=== PATIENT | female | born 1995 | race Caucasian/White ===

== ENCOUNTER 2017-11-06 22:06 | Emergency (ER) | payer BC, SELFPAY ==
[2017-11-06 22:09] VITALS: BP 115/60; PULSE 99; RESP 20; TEMP 36.5; O2SAT 98; BMI 27.3
[2017-11-06] MEDS: DiphenhydrAMINE 25 MG Capsule PO (23:39)
--- NOTE | 2017-11-07 00:37 | ED.VISSUMM ---
- ER Visit Summary Date of Service: 11/07/17 Chief Complaint: Generalized itching History of Present Illness: The patient is a 22 F who was seen at the [facility] and prescribed Omnicef for severe otitis media. She also complains of scratchy throat, dry mouth, cough and nasal congestion. She denies fever or chills. She denies any visual change, photophobia or eye pain. She denies neck pain or neck stiffness. Her cough is nonproductive. She denies nausea or vomiting. She denies rash. She denies orthostatic symptoms. Please read written note for complete detail Physical Examination: Patient's vitals are normal. Head is atraumatic normocephalic. Pupils are equal round reactive. Extraocular muscles are intact. TMs are pearly white with landmarks noted in the right and evidence of serous otitis on the left.. Nares patent with minimal clear drainage. Posterior pharynx without erythema or exudate. Uvula is midline. There is no dysphonia or dysphasia. Trachea is midline. There is no stridor with auscultation of the neck. Is no anterior cervical lymphadenopathy. Heart is regular without murmur, gallop or rub. S1 and S2 are normal. Lungs are clear to auscultation with good movement of air bilaterally. Dermatologic exam is normal with no evidence of rash or lesions. Test Results: None Emergency Department Course and Treatment: Patient was given Benadryl. She was reassessed at 029. Her itching has resolved. Treatment Plan: Patient was instructed to discontinue the antibiotic she was prescribed. She was informed her constellation of symptoms is consistent with a viral upper respiratory infection and the reason she has ear discomfort is because there is fluid behind the left eardrum. Disposition: Discharged to home Impression: 1. Pruritus secondary to reaction antibiotic 2. Serous otitis media left ear 3. Acute viral upper respiratory infection This note was generated with [employer] dictation software. It may contain incorrect words, spelling, and punctuation that were not noted in review of the chart prior to signing ED Disposition - Plan for ED Patient: Disposition: Home or Assisted Living Chief Complaint: Allergic Reaction Instructions: ED Allergic Reaction General Other, ED Otitis Media Serous Adult, ED URI Viral Referrals: Care Physician,No Primary [Primary Care Provider] - Cas King MD [STAFF PHYSICIAN] - 1 Week if not improving Additional Instructions: Patient was referred to the Dr. King since her prior physician was a family practitioner at the [facility] and she requested to have a doctor who worked at the [facility]. Discontinue Omnicef
--- NOTE | 2017-11-07 00:46 | ED.DCSUM_ITS ---
- ER Visit Summary Date of Service: 11/07/17 Chief Complaint: Generalized itching History of Present Illness: The patient is a 22 F who was seen at the [facility] and prescribed Omnicef for severe otitis media. She also complains of scratchy throat, dry mouth, cough and nasal congestion. She denies fever or chills. She denies any visual change, photophobia or eye pain. She denies neck pain or neck stiffness. Her cough is nonproductive. She denies nausea or vomiting. She denies rash. She denies orthostatic symptoms. Please read written note for complete detail Physical Examination: Patient's vitals are normal. Head is atraumatic normocephalic. Pupils are equal round reactive. Extraocular muscles are intact. TMs are pearly white with landmarks noted in the right and evidence of serous otitis on the left.. Nares patent with minimal clear drainage. Posterior pharynx without erythema or exudate. Uvula is midline. There is no dysphonia or dysphasia. Trachea is midline. There is no stridor with auscultation of the neck. Is no anterior cervical lymphadenopathy. Heart is regular without murmur, gallop or rub. S1 and S2 are normal. Lungs are clear to auscultation with good movement of air bilaterally. Dermatologic exam is normal with no evidence of rash or lesions. Test Results: None Emergency Department Course and Treatment: Patient was given Benadryl. She was reassessed at 029. Her itching has resolved. Treatment Plan: Patient was instructed to discontinue the antibiotic she was prescribed. She was informed her constellation of symptoms is consistent with a viral upper respiratory infection and the reason she has ear discomfort is because there is fluid behind the left eardrum. Disposition: Discharged to home Impression: 1. Pruritus secondary to reaction antibiotic 2. Serous otitis media left ear 3. Acute viral upper respiratory infection This note was generated with [employer] dictation software. It may contain incorrect words, spelling, and punctuation that were not noted in review of the chart prior to signing ED Disposition - Plan for ED Patient: Disposition: Home or Assisted Living Chief Complaint: Allergic Reaction Instructions: ED Allergic Reaction General Other, ED Otitis Media Serous Adult , ED URI Viral Referrals: Care Physician,No Primary [Primary Care Provider] - Cas King MD [STAFF PHYSICIAN] - 1 Week if not improving Additional Instructions: Patient was referred to the Dr. King since her prior physician was a family practitioner at the [facility] and she requested to have a doctor who worked at the [facility]. Discontinue Omnicef
[2017-11-07 00:55] VITALS: PULSE 76; RESP 18; O2SAT 99
== END 2017-11-07 00:56 | disposition home or self-care (01) ==
PROVIDERS: Emergency Provider Emergency Medicine
DX: L29.9 Pruritus, unspecified (principal); T36.1X5A Adverse effect of cephalosporins and other beta-lactam antibiotics, initial encounter; H65.92 Unspecified nonsuppurative otitis media, left ear; J06.9 Acute upper respiratory infection, unspecified; Z72.0 Tobacco use
CPT/HCPCS: 99282

== ENCOUNTER 2018-06-27 19:34 | Emergency (ER) | payer BC, SELFPAY ==
[2018-06-27 19:34] VITALS: BP 123/74; PULSE 99; RESP 18; TEMP 36.8; O2SAT 97; BMI 27.6
--- NOTE | 2018-06-27 20:04 | DCINST.ED_ITS ---
ED Disposition - Plan for ED Patient: Chief Complaint: Ear Problem Instructions: ED Otitis Media Serous Adult Prescriptions: Guaifenesin/Pseudoephedrne HCl [Mucinex D ER 600-60 mg Tablet] 1 each PO BID #14 tab.er.[id number] Referrals: Janes Miles, BUSINESS SUPPORT MANAGER-C [NON-STAFF] -
--- NOTE | 2018-06-27 20:08 | ED.DCSUM_ITS ---
- ER Visit Summary Date of Service: 06/27/18 Chief Complaint: Right ear pain and decreased hearing History of Present Illness: The patient is a 23 F presents with right ear pain and decreased hearing. She states this has been ongoing for the past 2 weeks. She states she did use a Q-tip at one point during this time. She has not had a fever. Denies recent swimming or airplane trips. She has not tried medication at home. Denies other complaints. Physical Examination: Vitals are stable. Patient is afebrile. Alert no acute distress. HEENT exam fluid behind right TM, left TM normal Neck is supple. Lungs are clear and equal bilaterally. Heart is regular rate and rhythm. Extremities are unremarkable. Skin is warm and dry. No focal neurologic deficit. Remainder of exam is unremarkable. Emergency Department Course and Treatment: Patient is given a prescription for Mucinex D. She is advised to follow-up with her primary care physician. Advised return to ED if worsening complaints. Disposition: Discharge home Impression: Right serous otitis media This note was generated with [employer] dictation software. It may contain incorrect words, spelling, and punctuation that were not noted in review of the chart prior to signing ED Disposition - Plan for ED Patient: Chief Complaint: Ear Problem Instructions: ED Otitis Media Serous Adult Prescriptions: Guaifenesin/Pseudoephedrne HCl [Mucinex D ER 600-60 mg Tablet] 1 each PO BID #14 tab.er.12h Referrals: Janes Miles, SARAH-C [NON-STAFF] -
== END 2018-06-27 20:33 | disposition home or self-care (01) ==
LOC: ED 20:24
PROVIDERS: Emergency Provider Emergency Medicine
DX: H65.91 Unspecified nonsuppurative otitis media, right ear (principal); Z72.0 Tobacco use
CPT/HCPCS: 99282

== ENCOUNTER 2021-09-12 08:25 | Emergency (ER) | payer BC, SELFPAY ==
[2021-09-12 08:26] VITALS: BP 121/71; PULSE 100; RESP 17; TEMP 35.9; O2SAT 97; BMI 31.3
--- NOTE | 2021-09-12 08:50 | US_ITS ---
STUDY: FIRST TRIMESTER OBSTETRICAL ULTRASOUND REASON FOR EXAM: Female, 26 years old w/ pelvic pain LMP: 08/11/2021. TECHNIQUE: Transvaginal TECHNICAL QUALITY: Adequate. PRIOR ULTRASOUND: None. FINDINGS: There is visualization of a single gestational sac in a normal intrauterine position. The mean sac diameter (MSD) measures 1.9 cm, indicating an estimated gestational age (EGA) of 6 weeks, 6 days. The gestational sac shape is within normal limits. There is a visualized yolk sac. The yolk sac measures 3.3 mm. The placenta is non-visualized. There is visualization of a live embryo. The crown-rump length (CRL) measures 7.6 mm, indicating an estimated gestational age (EGA) of 6 weeks, 5 days. There is demonstrated cardiac activity with a heart rate of 117 bpm. The estimated gestation age (EGA) by LMP is 6 weeks, 4 days. The estimated date of delivery (PRISCA) by LMP is 05/04/2022. The estimated gestation age (EGA) by US is 6 weeks, 5 days. The estimated date of delivery (PRISCA) by US is 05/03/2022. The uterus measures 9.1cmx 7.1 cm x 5.2 cm. There is no demonstrated uterine fibroid. The cervix is closed. The right ovary measures 2.7 cm x 1.5 cm x 0.9 cm. There is no right ovarian cyst. There is no visualized right adnexal mass or complex lesion. The left ovary measures 3.5 cm x 2.4 cm x 2.3 cm. There is a 2.5 cm x 1.8 cm x 1.5 cm corpus luteum cyst. There is no visualized left adnexal mass or complex lesion. There is no fluid in the cul de sac. US/Transvaginal w/Preg US IMPRESSION: Single live intrauterine gestation with a mean gestational age of 6 weeks 5 days. Corpus luteum cyst is seen in the left ovary. Electronically Signed: Jeff Spence MD at 12:19 EDT ,
--- NOTE | 2021-09-12 08:52 | ED.VIS.FEGU ---
HPI HPI - Female History of Present Illness Chief Complaint: Abd Pain Detail of Chief Complaint: Pelvic pain Informant: patient Pain Pain: Positive for Pelvic Pain Onset: Days Context: Gradual Onset Timing: Continuous Quality: Positive for Cramping Location: Suprapubic Current Severity: Mild Maximum Severity: Mild Bleeding Issue: Negative for Vaginal bleeding, Passing clots and Passing tissue Maximum Severity: Spotting, Mild, Similar to period and Heavy Associated Symptoms Associated Symptoms: Negative for Dysuria, Frequency, Urgency and Hematuria Test: Positive Sexually: Positive for Active P: 1 Ab: 0 Narrative Narrative: 26-year-old female G2, P1 Ab0. Think she is about 6 weeks and 5 days with her last menstrual period being around July 28. She has had no care as of yet. States that she has had pelvic pain for the last 5 to 6 days starting around Thursday. Increased yesterday. She describes it as sharp and cramping. Denies any vaginal bleeding nor any vaginal discharge. No fever. No specific dysuria. She is Ab0. She denies any diarrhea or constipation. Prior similar symptoms: No Recent Illness/Hospitalization: No PFSH PFSH Medical History no medical history no medical history Home Medications prenat.vits,armando,yat-sypp-uyyio 1 tab PO DAILY 09/09/21 [History Last Taken Unknown] sertraline 50 mg tablet 50 mg PO DAILY 09/09/21 [History Last Taken Unknown] Allergy/AdvReac Type Severity Reaction Status Date / Time amoxicillin [Amoxicillin] Allergy Hives Verified 09/12/21 08:26 cefdinir [From Omnicef] Allergy Shortness Verified 09/12/21 08:26 of breath Penicillins Allergy Hives Verified 09/12/21 08:26 Family History Father Myocardial infarction stent placement Brother Asthma Surgical History S/P tonsillectomy S/P wisdom tooth extraction Social History adopted: No household members: significant other and children number of children: 1 current occupational status: employed current occupation: [employer] pets and animals: Yes (avoid litter box) pets and animals: cat(s) Smoking Status: Current some day smoker tobacco type: cigarettes quit status: considering quitting alcohol intake: never substance use type: does not use caffeine: Yes (soda X 1 daily) do you feel safe at home: Yes additional social history: Chelsie Mathur ROS ROS ED ROS Narrative Nausea and vomiting. Review of Systems ROS Unobtainable: Denies due to encephalopathy Constitutional Constitutional ED: Denies fever(s) Eyes Eyes: Denies change in vision ENT ENT ED: Denies ear pain Cardiovascular Cardiovascular: Denies chest pain Respiratory/Chest Respiratory/Chest: Denies dyspnea Gastrointestinal Gastrointestinal: Reports abdominal pain, nausea and vomiting; Denies constipation or diarrhea Genitourinary Genitourinary ED: Denies dysuria Musculoskeletal Musculoskeletal: Denies myalgias Integumentary Denies rash Neurologic Neurologic: Denies headache(s) Psychiatric Psychiatric: Denies depression Endocrine Endocrinology: Denies polyuria Hematologic/Lymphatic Hematologic/Lymphatic: Denies easy bruising Allergic/Immunologic Allergic/Immunologic ED: Denies urticaria EXAM Physical Exam Narrative Exam Narrative: 26-year-old female no acute distress. Vital signs stable afebrile. H EENT exam unremarkable. Lungs clear to auscultation. Heart regular rhythm. Abdomen soft nondistended normal bowel sounds no peritoneal signs. Tender suprapubically. Upper quadrants are unremarkable. Right lower quadrant is unremarkable. No hernia or mass. No distention. Moving all 4 extremities. No edema. Neurologically awake and alert. Const Vital Signs: 09/12/21 08:26 Temperature 96.7 F L Temperature Source Temporal Pulse Rate 100 Respiratory Rate 17 Blood Pressure 121/71 H Blood Pressure Mean 87 Pulse Ox 97 Oxygen Delivery Method Room Air Positive well nourished and well developed; Negative for cachectic, contractures or unkempt General Appearance ED: well developed and NAD; Negative for unkempt, cachectic, contractures or pallor Nutritional Appearance: Negative for cachectic HEENT Reports moist mucous membranes Negative for trauma or tenderness Eyes PERRL and EOMs intact bilaterally General Eye ED: Negative for pale conjunctiva or scleral icterus Neck no lymphadenopathy, supple and no JVD Thyroid: Negative for tender Chest Wall inspection of chest normal and palpation of chest normal Resp normal respiratory effort and clear to auscultation bilaterally Effort and Inspection: Negative for pain with movement Auscultation: Negative for rales or rhonchi Cardio regular rate, regular rhythm, S1 normal heart sound, no murmurs and no JVD Rate: Negative for tachycardic Rhythm: Negative for abnormal rhythm GI normal to inspection, nondistended, normoactive bowel sounds, soft to palpation, non-distended and no masses; Negative for non-tender Auscultation: normoactive bowel sounds; Negative for hypoactive bowel sounds Palpation: tender; Negative for guarding or rigid no CVA tenderness Extremity normal to inspection and full ROM General Extremety ED: Negative for edema or tenderness General Extremity: Negative for edema Neuro oriented x3 and CN's II-XII intact bilaterally Sensorium / Orientation: alert, oriented to person, oriented to place and oriented to time Motor Exam: strength 5/5 throughout Psych mental status grossly normal Appearance: Negative for unkempt Mood & Affect: Negative for depressed or tearful Skin no rashes or lesions noted and no wounds General Skin Exam: Negative for jaundice or pallor MDM MDM MDM Narrative Medical decision making narrative: 26-year-old female G2, P1 Ab0 approximately 6+ weeks . Complaining of pelvic pain. No bleeding. Her blood type is O+. Pelvic ultrasound, urinalysis and quant will be obtained. Repeat exam patient doing well at 12:37 PM. We went over all of her test results. She will be discharged home. Tylenol for pain. Follow-up with her DIRECT SUPPORT SPECIALIST. Lab Data Attestation: I reviewed the patient's lab results. Lab results narrative: Quantitative hCG is 34,803. Urinalysis negative. No whites or reds nor bacteria nor nitrates. Ultrasound showed a single live IUP at 6 weeks and 5 days with a due date of around 05/04/2022. Labs: Laboratory Results - last 24 hr 09/12/21 09/12/21 09:43 10:25 HCG, Quant 02900 H Urine Color Yellow Urine Clarity Clear Urine pH 6.5 Ur Specific [place] 1.010 Urine Protein Negative Urine Glucose (UA) Normal Urine Ketones Negative Urine Occult Blood Negative Urine Nitrite Negative Urine Bilirubin Negative Urine Urobilinogen Normal Ur Leukocyte Esterase 25 H Urine RBC 0 SEEN Urine WBC 0-5 SEEN Ur Squamous Epith Cells 0-5 SEEN Urine Bacteria 0 SEEN Urine Mucus 0 SEEN Radiography Diagnostic Testing: Clinical Impression(s) from Imaging Studies Obstetrics Ultrasound 09/12/21 08:50 IMPRESSION: Single live intrauterine gestation with a mean gestational age of 6 weeks 5 days. Corpus luteum cyst is seen in the left ovary. Electronically Signed: Jeff Spence MD at 12:19 EDT , Discharge Plan Triage Chief Complaint: Abd Pain ED Provider: Ezio Crisostomo Dx/Rx/DC Orders Clinical Impression: Pelvic pain, First trimester Instructions: Your First Trimester ... Prescriptions: No Action sertraline [Zoloft] 50 mg tablet 50 mg PO DAILY RF: 0 prenat.vits,armando,wnh-hhog-rstip Tablet 1 tab PO DAILY RF: 0 Primary Care Provider: Janes Miles NP Referrals: Willow Concepcion DO [STAFF PHYSICIAN] - As soon as possible Janes Miles NP, INBOUND CUSTOMER SERVICE REPRESENTATIVE-C [Primary Care Provider] - Activity Restrictions/Additional Instructions: Follow-up with your DIRECT SUPPORT SPECIALIST. Tylenol for pain. Your ultrasound and urinalysis were normal. Disposition Disposition: Home, Self Care
[2021-09-12 10:31] LABS: Bacteria 0 SEEN /hpf (None Seen); Mucous, Urine 0 SEEN /hpf (<or=2+); Red Blood Cells-Urine 0 SEEN /hpf (0-5)
[2021-09-12 10:33] LABS: Color, Urine Yellow (Yellow); Glucose, Dipstick Normal (Normal); Ketone-Dipstick Negative (Negative); Leukocyte Esterase-Dipstick 25 /ul (Negative); Nitrite-Dipstick Negative (Negative); Occult Blood-Urine Negative /ul (Negative); Protein-Dipstick Negative (Negative); Urine Bilirubin Dipstick Negative (Negative); Urine Clarity Clear (Clear); Urine Urobilinogen Normal (Normal); Urine pH 6.5 (5.0 - 8.0)
[2021-09-12 10:38] LABS: hCG Titer Quant., Serum 34803 mIU/mL (1-3)
[2021-09-12 10:39] LABS: Squamous Epithelial Cells - UA 0-5 SEEN /hpf (5-10); White Blood Cells 0-5 SEEN /hpf (0-5)
--- NOTE | 2021-09-12 10:50 | ED.RN ---
6 attempts at IV placement, unsuccessful. Per Dr. Crisostomo no need for IV if blood work was obtained.
[2021-09-12 12:54] VITALS: BP 98/52; PULSE 82; RESP 116; RESP 16; O2SAT 95
== END 2021-09-12 12:55 | disposition home or self-care (01) ==
PROVIDERS: Emergency Provider Emergency Medicine; PCP Nurse Practitioner Family; Visit Provider Emergency Medicine
DX: O26.891 Other specified pregnancy related conditions, first trimester (principal); Z3A.01 Less than 8 weeks gestation of pregnancy; O99.331 Smoking (tobacco) complicating pregnancy, first trimester; F17.210 Nicotine dependence, cigarettes, uncomplicated; R10.2 Pelvic and perineal pain
CPT/HCPCS: 36415; 76817; 81001; 84702; 99283; A4216

== ENCOUNTER 2021-09-25 06:30 | Outpatient (CLI) | payer BC, SELFPAY ==
[2021-09-25 11:23] LABS: Amphetamine Urine VISTA NEGATIVE (<1000 ng/mL); Barbiturate Urine VISTA NEGATIVE (< 200 ng/mL); Benzodiazepine Urine VISTA NEGATIVE (< 200 ng/mL); Cocaine Urine VISTA NEGATIVE (< 300 ng/mL); Ecstacy Urine VISTA NEGATIVE (< 500 ng/mL); Methadone Urine VISTA NEGATIVE (< 300 ng/mL); PCP Urine VISTA NEGATIVE (< 25 ng/mL); THC Urine VISTA NEGATIVE (< 50 ng/mL); Vista UDS pH Range 6
[2021-09-26 22:06] LABS: Chlamydia By Nucleic Acid AMP Negative (Negative)
[2021-09-26 22:25] LABS: Gonococcus By Nucleic Acid AMP Negative (Negative)
[2021-10-02 10:44] LABS: HPV Reflexed? NOT INDICATED
== END 2021-09-25 23:59 | disposition home or self-care (01) ==
LOC: LABSPEC 09-26 06:30
PROVIDERS: PCP Nurse Practitioner Family; Referring Provider Obstetrics & Gynecology; Visit Provider Obstetrics & Gynecology
DX: Z34.80 Encounter for supervision of other normal pregnancy, unspecified trimester (principal)
CPT/HCPCS: 80307; 87086; 87088; 87491; 87591; 88175; G0145

== ENCOUNTER → 2021-10-04 | Outpatient (CLI) | payer BC, SELFPAY ==
[2021-10-04 13:29] LABS: NATERA MAILED SPECIMEN
[2021-10-04 13:34] LABS: Absolute Lymphocyte Count 2.78 X10^3/uL (0.83-4.51); Absolute Neutrophil Count 7.2 X10^3/uL (2.0-7.7); Basophil# 0.03 X10^3/uL; Basophil% 0.3 % (0-1); Eosinophil# 0.16 X10^3/uL; Eosinophils% 1.5 % (0-5); Hematocrit 36.2 % (37-47); Lymphocyte # 2.78 X10^3/ul (0.83-4.51); Lymphocyte % 25.4 % (19-41); Mean Corp Hgb Conc 35.9 g/dL (32-36); Mean Corpuscular Hgb 32.3 pg (27.0-32.0); Mean Platelet Vol. 10.5 fl (6.2-12.0); Monocyte# 0.69 X10^3/uL; Monocyte% 6.3 % (0-10); NRBC Flagged by Analyzer 0 % (0-5); Neutrophil # 7.24 X10^3/uL (2.7-7.7); Neutrophil % 66.2 % (47-70); POSITIVE COUNT YES; Platelet Count 233 K/mm3 (150-450); RBC Distribution Width CV 12.6 % (11.6-14.6); RBC Distribution Width SD 41.2 fl (35.1-43.9); Red Blood Count 4.02 M/mm3 (4.2-5.4); White Blood Count 10.9 K/mm3 (4.4-11.0)
[2021-10-04 14:01] LABS: Glucose Challenge Gest 1H 50g 125 mg/dL (70-140)
[2021-10-04 14:17] LABS: Differential Indicated SCAN CRITERIA MET
[2021-10-04 14:44] LABS: HIV - WCH Non-Reactive (Nonreactive); Hepatitis B Surface Antigen Non-Reactive (Nonreactive); Hepatitis C Antibody Non-Reactive (Nonreactive); Rubella IgG Reactive (Nonreactive); Syphilis Antibodies Non-reactive
== END | disposition home or self-care (01) ==
LOC: LAB 12:24
PROVIDERS: Obstetrics & Gynecology; PCP Nurse Practitioner Family; Visit Provider Obstetrics & Gynecology
DX: Z34.80 Encounter for supervision of other normal pregnancy, unspecified trimester (principal)
CPT/HCPCS: 36415; 82950; 85025; 86703; 86762; 86780; 86803; 86850; 86900; 86901; 87340

== ENCOUNTER → 2022-01-24 | Outpatient (CLI) | payer BC, SELFPAY ==
[2022-01-24 08:30] LABS: Absolute Lymphocyte Count 2.17 X10^3/uL (0.83-4.51); Absolute Neutrophil Count 8.6 X10^3/uL (2.0-7.7); Basophil# 0.05 X10^3/uL; Basophil% 0.4 % (0-1); Eosinophil# 0.16 X10^3/uL; Eosinophils% 1.4 % (0-5); Hematocrit 33.9 % (37-47); Hemoglobin 11.4 g/dL (12.0-15.0); Lymphocyte # 2.17 X10^3/ul (0.83-4.51); Lymphocyte % 18.4 % (19-41); Mean Corp Hgb Conc 33.6 g/dL (32-36); Mean Corpuscular Hgb 33.1 pg (27.0-32.0); Mean Corpuscular Volume 98.5 fL (81-99); Mean Platelet Vol. 10.2 fl (6.2-12.0); Monocyte# 0.67 X10^3/uL; Monocyte% 5.7 % (0-10); NRBC Flagged by Analyzer 0 % (0-5); Neutrophil # 8.62 X10^3/uL (2.7-7.7); Neutrophil % 73.2 % (47-70); Platelet Count 285 K/mm3 (150-450); RBC Distribution Width CV 13.3 % (11.6-14.6); RBC Distribution Width SD 48.2 fl (35.1-43.9); Red Blood Count 3.44 M/mm3 (4.2-5.4); White Blood Count 11.8 K/mm3 (4.4-11.0)
[2022-01-24 08:52] LABS: Glucose Challenge Gest 1H 50g 161 mg/dL (70-140)
== END | disposition home or self-care (01) ==
LOC: LAB 06:53
PROVIDERS: PCP Nurse Practitioner Family; Referring Provider Obstetrics & Gynecology; Visit Provider Obstetrics & Gynecology
DX: Z34.80 Encounter for supervision of other normal pregnancy, unspecified trimester (principal)
CPT/HCPCS: 36415; 82950; 85025

== ENCOUNTER → 2022-01-28 | Outpatient (CLI) | payer BC, SELFPAY ==
[2022-01-28 07:32] LABS: Glucose GTT-Gestation. Fasting 93 mg/dL (<105)
[2022-01-28 08:36] LABS: Glucose GTT-Gestational 1 Hr 175 mg/dL (<190)
[2022-01-28 10:08] LABS: Glucose GTT-Gestational 2 Hr 169 mg/dL (<165)
[2022-01-28 11:09] LABS: Glucose GTT-Gestational 3 Hr 102 L (<145)
== END | disposition home or self-care (01) ==
LOC: LAB 06:57
PROVIDERS: PCP Nurse Practitioner Family; Referring Provider Obstetrics & Gynecology; Visit Provider Obstetrics & Gynecology
DX: Z13.1 Encounter for screening for diabetes mellitus (principal)
CPT/HCPCS: 36415; 82951; 82952

== ENCOUNTER 2022-02-05 14:18 | Outpatient (CLI) | payer BC, SELFPAY ==
[2022-02-05] VITALS (7 sets, daily range): BP systolic 100–116; BP diastolic 52–61; PULSE 75–93; TEMP 36.3–36.9; O2SAT 99; BMI 32.7
[2022-02-05] MEDS: Lactated Ringers 1,000 ML 999 ML IV (17:00)
[2022-02-05 17:06] LABS: Absolute Lymphocyte Count 2.06 X10^3/uL (0.83-4.51); Absolute Neutrophil Count 6.7 X10^3/uL (2.0-7.7); Basophil# 0.02 X10^3/uL; Basophil% 0.2 % (0-1); Hematocrit 32.1 % (37-47); Hemoglobin 11.1 g/dL (12.0-15.0); Lymphocyte # 2.06 X10^3/ul (0.83-4.51); Lymphocyte % 21.5 % (19-41); Mean Corp Hgb Conc 34.6 g/dL (32-36); Mean Corpuscular Hgb 33.1 pg (27.0-32.0); Mean Corpuscular Volume 95.8 fL (81-99); Mean Platelet Vol. 9.6 fl (6.2-12.0); Monocyte# 0.68 X10^3/uL; Monocyte% 7.1 % (0-10); NRBC Flagged by Analyzer 0 % (0-5); Neutrophil # 6.66 X10^3/uL (2.7-7.7); Neutrophil % 69.6 % (47-70); Platelet Count 255 K/mm3 (150-450); RBC Distribution Width CV 13.5 % (11.6-14.6); RBC Distribution Width SD 46.7 fl (35.1-43.9); Red Blood Count 3.35 M/mm3 (4.2-5.4); White Blood Count 9.6 K/mm3 (4.4-11.0)
[2022-02-05] MEDS: NIFEdipine 10 MG Capsule PO (17:12)
[2022-02-05 17:26] LABS: Bacteria 0 SEEN /hpf (None Seen); Mucous, Urine 0 SEEN /hpf (<or=2+); Red Blood Cells-Urine 0 SEEN /hpf (0-5); White Blood Cells 0 SEEN /hpf (0-5)
[2022-02-05] MEDS: cycloBENZAPRine HCl 5 MG TABLET PO (17:35)
[2022-02-05 17:39] LABS: Color, Urine Straw (Yellow); Glucose, Dipstick Normal (Normal); Ketone-Dipstick Negative (Negative); Leukocyte Esterase-Dipstick Negative /ul (Negative); Nitrite-Dipstick Negative (Negative); Occult Blood-Urine Negative /ul (Negative); Protein-Dipstick Negative (Negative); Urine Bilirubin Dipstick Negative (Negative); Urine Clarity Clear (Clear); Urine Urobilinogen Normal (Normal); Urine pH 6.5 (5.0 - 8.0)
[2022-02-05 17:47] LABS: Squamous Epithelial Cells - UA 0-5 SEEN /hpf (5-10)
--- NOTE | 2022-02-05 18:00 | US_ITS ---
STUDY: SECOND AND THIRD TRIMESTER OBSTETRICAL ULTRASOUND - LIMITED REASON FOR EXAM: Female, 26 years old placenta location and cervical length only LMP: PRIOR ULTRASOUND: 09/12/2021 TECHNIQUE: Transabdominal and transvaginal TECHNICAL QUALITY: Adequate. FINDINGS: There is a single intrauterine fetus. The fetus is in a cephalic presentation. There is demonstrated cardiac activity with a heart rate of 148 bpm. There is a normal amniotic fluid volume. The largest amniotic fluid pocket measures 5.4 cm.. The placenta is low-lying approximately 1.8 cm proximal to the internal os There are Grade 1 placental changes. The cervix measures 4 cm in length. Age by LMP: 27 weeks, 4 days. PRISCA by LMP: 05/03/2022. US/OB Limited (No Biometrics) IMPRESSION: Viable intrauterine gestation approximately 27-28 weeks gestational age. Low-lying placenta approximately 1.8 cm proximal to the internal os. Cervical length 4 cm Electronically Signed: Jayson Coleman MD at 20:38 EDT ,
[2022-02-05] MEDS: Lactated Ringers 1,000 ML 125 ML IV (18:12)
[2022-02-05] MEDS: Indomethacin 25 MG Capsule 50 MG PO (18:49)
[2022-02-05] MEDS: Betamethasone/Betamethasone 30 MG/5 ML Vial 12 MG IM (21:24)
--- NOTE | 2022-02-05 21:28 | HP.PCM.OB_ITS ---
HPI - General General Date of Admission: 02/05/22 HPI Narrative SHIMA ULLOA, is a 26 @ 27 weeks 4 days who presents to L&D with painful contractions. She denies lof, vaginal bleeding, or dec fm. 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 She was diagnosed with a posterior placental previa on ultrasound at 20 weeks. Today scan shows that it is 1.8 cm from the cx os and the cx measures 4 cm in length. while being triaged her cervix did not make change from 18:00 to repeat check at 20:30. Maternal Data Information PRISCA Calculator Estimated Delivery Date Method Current WG Current Estimate 05/03/22 LMP (Certain) 27w 4d Other Estimates 04/30/22 Ultrasound #1 28w 0d PFSH PFSH Medical History Congenital abnormality of ventricle of heart Home Medications prenat.vits,armando,xnn-uwzh-[id number] 1 tab PO DAILY 09/09/21 [History Last Taken Unknown] sertraline 50 mg tablet (Zoloft) 50 mg PO DAILY 09/09/21 [History Last Taken Unknown] promethazine 12.5 mg tablet 12.5 mg PO TID PRN nausea and vomiting #60 tabs 09/25/21 [Rx Last Taken Unknown] nitrofurantoin macrocrystal 100 mg capsule 100 mg PO BID 7 days #14 caps 02/05/22 [Rx Last Taken Unknown] Allergy/AdvReac Type Severity Reaction Status Date / Time amoxicillin [Amoxicillin] Allergy Hives Verified 02/05/22 15:19 cefdinir [From Omnicef] Allergy Shortness Verified 02/05/22 15:19 of breath Penicillins Allergy Hives Verified 02/05/22 15:19 Family History Father Myocardial infarction stent placement Brother Asthma Surgical History S/P tonsillectomy S/P wisdom tooth extraction Social History adopted: No household members: significant other and children number of children: 1 current occupational status: employed current occupation: [employer] pets and animals: Yes (avoid litter box) pets and animals: cat(s) Smoking Status: Current some day smoker tobacco type: cigarettes quit status: considering quitting alcohol intake: never substance use type: does not use caffeine: Yes (soda X 1 daily) do you feel safe at home: Yes additional social history: Chelsie Mathur History 2 Elective abortions Hx Para 1 Spontaneous abortions Hx # Term Pregnancies Ectopic pregnancies Hx # Pregnancies Multiple births # of living children Past Pregnancies Del. Date Name GA/Weeks Outcome Route Bth Weight Infant Gen Labor Lgth Anesthesia Del Locatn Provider FOB Unknown 05/13/2015 Kailey 36 live - 5# 12 Fe male 9 hr epidural WC Nella Mcdonald Delivery Date: Last Updated by: Alejandra Romero MAIL SERVICE COORDINATOR, MAIL SERVICE COORDINATOR-C failed . Had episiotomy. Visit Details Expected Delivery Route/Plan Labor Preferences- CB/BF classes: [] labor support person: [] labor intervention preferences: [] pain management options preferred: [] cut cord/dad catch: [] : [] PP control planned: [] discussed possible routes of delivery and associated risks: [] special requests: [] Plans Covid status: discussed Flu vaccine: discussed Tdap vaccine: [] Rhogam: [] LARC form signed: [] Problem list reviewed and updated with the most current plan of care details and appropriate orders placed. Relevant counseling for the gestational age provided. Continue routine care and follow up unless otherwise noted in visit notes/problem list details OB Flowsheet Initial Weight: Not Recorded Date -?-?-?-?-?-?-?-?-?-?-?-?- EGA Weight BP Urine Prot -?-?-?-?-?-?-?-?-?-?-?-?- Glucose FHR FuHt Pres Dilation -?-?-?-?-?-?-?-?-?-?-?-?- Effaced St Visit Note 09/25/21 -?-?-?-?-?-?-?-?-?-?-?-?- 8w 4d 186 lb 120/68 -?--?-?-?-?-?-?-?-?-?-?-?- 168 -?-?-?-?-?-?-?-?-?-?-?-?- JV- CRL consiste nt with LMP. 10/25/21 -?-?-?-?-?-?-?-?-?-?-?-?- 12w 6d 182 lb 6 oz 102/70 Nega tive -?-?-?-?-?-?-?-?-?-?-?-?- Negative 153 -?-?-?-?-?-?-?-?-?-?-?-?- JV- CRL consist ent with GA given. nausea improved. Still waiting on insurance to discuss katie injection. will get CL at 18 weeks. ultrasound ordered 11/22/21 -?-?-?-?-?-?-?-?-?-?-?-?- 16w 6d 184 lb 8 oz 100/60 Nega tive -?-?-?-?-?--?-?-?-?-?-?-?- Negative 155 -?-?-?-?-?-?-?-?-?-?-?-?- JV- no cramping or bleeding. c/o low back pain. remedies discussed. Anatomy ultrasound scheduled for end of month 12/23/21 -?-?-?-?-?-?-?-?-?-?-?-?- 21w 2d 187 lb 99/64 Negative -?-?-?-?-?-?-?-?-?-?-?-?- Negative 130 -?-?-?-?-?-?-?-?-?-?-?-?- SM- no vb lof go od fm no regular ctx 01/24/22 -?-?-?-?-?-?-?-?-?-?-?-?- 25w 6d 189 lb 112/80 Negative -?-?-?-?-?-?-?-?-?-?-?-?- Negative 145 26 -?-?-?-?-?-?-?-?-?-?-?-?- Sm- no vb lof go od fm n oregular ctx NST FHR Rate Baby A Baseline: 140 Variability:: Moderate Accelerations:: 15 x 15 Decelerations:: None NST Reactive:: Yes FHR Category:: Category I ROS Constitutional Constitutional: Reports systems reviewed and no addt'l complaints, except as documented Gastrointestinal Gastrointestinal: Denies bloating, constipation, cramping, diarrhea, nausea or vomiting Genitourinary Genitourinary: Reports other Details: Denies vaginal odor, vaginal bleeding, or vaginal discharge ; Denies difficulty urinating or flank pain Vital Signs Vital Signs Vital Signs: 02/05/22 15:09 02/05/22 15:09 02/05/22 15:11 Temperature 97.5 F L Temperature Source Temporal Pulse Rate Blood Pressure 116/61 BP Systolic 116 BP Diastolic 61 Pulse Ox 02/05/22 15:11 02/05/22 17:38 02/05/22 17:38 Temperature 98.4 F Temperature Source Temporal Pulse Rate 83 Blood Pressure BP Systolic BP Diastolic Pulse Ox 02/05/22 17:39 02/05/22 17:39 02/05/22 17:38 Temperature 98.5 F Temperature Source Pulse Rate 81 Blood Pressure 100/52 L BP Systolic 100 BP Diastolic 52 Pulse Ox 02/05/22 20:05 02/05/22 20:05 02/05/22 20:05 Temperature 97.3 F L Temperature Source Pulse Rate 93 Blood Pressure BP Systolic BP Diastolic Pulse Ox 99 02/05/22 20:08 02/05/22 20:08 Temperature Temperature Source Pulse Rate 77 Blood Pressure 109/59 L BP Systolic 109 BP Diastolic 59 Pulse Ox Weight Weight: 190 lb 11.198 oz Body Mass Index (BMI) 32.7 Physical Exam HEENT normocephalic Resp normal respiratory effort and normal air movement no CVA tenderness Amniotic Fluid: other cervix is closed/thick/ high with only 1 cm opening of the external os. Extremity normal to inspection General Extremity: edema bilateral (trace ) Labs Labs Labs: Blood Type O POSITIVE Antibody Screen NEGATIVE Hct 32.1 % (37-47) L Hgb 11.1 g/dL (12.0-15.0) L Obstetrics US Syphilis Total Ab Non-reactive Rubella IgG Antibody Reactive (Nonreactive) Hep Bs Antigen Non-Reactive (Nonreactive) Chlamydia DNA (YUKI) Negative (Negative) Neisseria gonorrhoeae DNA (YUKI) Negative (Negative) HIV 1&2 Antibody Non-Reactive (Nonreactive) Glucose 1 Hr 50 gm 161 mg/dL (70-140) H Group B Strep DNA Negative (Negative) Rhogam given: No Assessment & Plan (1) Placenta previa: COMMENT: now low lying at 1.8 cm from internal os at 27 week ultrasound [facility]. (2) History of labor: COMMENT: delivered spontaneously at 36 weeks 2 days -ccf ([facility]) and was a vacuum extraction for possible bradycardia. bb wt was only 5 lbs. -jocy candidate- declined due to cost - CL at 18 weeks. (3) Obesity affecting : COMMENT: Normal 1 hr GTT (4) Supervision of other normal : COMMENT: FCCH2T3 PRISCA:05/03/22 boy Kevan Enriquez PC: Kailey. 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 (10) Threatened labor: PLAN: pt is status post IV fluid bolus of 1000cc LR, procardia 10 mg and indocin 50 mg. will rpt indocin 25 mg q 6 up to 72 hours. Celestone ordered There is a mild vaginal odor and appearance of yeast on the second exam. starting diflucan 150 mg po x [address] Andrade from [facility] - ok to keep in [place] unless makes cervical change. will re-evaluate if pain worsens and or in the am. admit for observation tonight with continuous pulse ox and IV fluids 100cc/hr. Charges/Coding Multi Select Codes Visit Charges Visit Charges: 45022 Init Hosp L3 Urinary/Genital Urinary/Genital CPT Codes: 96988-51 non-stress test Interp
[2022-02-05] MEDS: Acetaminophen 500 MG Tablet 1000 MG PO (22:00)
[2022-02-05] MEDS: FLUCONAZOLE 150 MG TABLET PO (22:01)
[2022-02-06] MEDS: Indomethacin 25 MG Capsule PO ×2 (00:59→07:34)
[2022-02-06] MEDS: Lactated Ringers 1,000 ML 100 ML IV (01:00)
[2022-02-06 01:03] VITALS: BP 101/52; TEMP 35.9
[2022-02-06 01:04] VITALS: PULSE 71; O2SAT 97
[2022-02-06 05:35] VITALS: BP 118/58; PULSE 74; TEMP 36.3
[2022-02-06 07:25] VITALS: BP 103/58; PULSE 77; PULSE 81; TEMP 36.3; TEMP 36.6; O2SAT 97
[2022-02-06 08:01] LABS: Amphetamine Urine VISTA NEGATIVE (<1000 ng/mL); Barbiturate Urine VISTA NEGATIVE (< 200 ng/mL); Benzodiazepine Urine VISTA NEGATIVE (< 200 ng/mL); Cocaine Urine VISTA NEGATIVE (< 300 ng/mL); Ecstacy Urine VISTA NEGATIVE (< 500 ng/mL); Methadone Urine VISTA NEGATIVE (< 300 ng/mL); PCP Urine VISTA NEGATIVE (< 25 ng/mL); THC Urine VISTA NEGATIVE (< 50 ng/mL); Vista UDS pH Range 7
--- NOTE | 2022-02-06 08:08 | PCM.PN.OB ---
Subjective Subjective rShe denies any vaginal bleeding loss of fluid admits good movement irregular contractions overnight that improved with rest and the medications. No cervical change. Objective Data Objective Data Vital Signs: Vital Signs Temp Pulse BP Pulse Ox 97.4 F L 81 103/58 L 97 02/06/22 07:25 02/06/22 07:25 02/06/22 07:25 02/06/22 07:25 Weight: 190 lb 11.198 oz Body Mass Index (BMI) 32.7 Intake & Output: Intake and Output for Last 24 Hours 02/04/22 02/05/22 02/06/22 23:59 23:59 23:59 Intake Total 1450 / 1450 320 / 320 Balance 1450 / 1450 320 / 320 Lab / Micro Data Result Diagrams: 02/05/22 17:00 Labs: Laboratory Results - last 24 hr 02/05/22 17:00: WBC 9.6, RBC 3.35 L, Hgb 11.1 L, Hct 32.1 L, MCV 95.8, MCH 33.1 H, MCHC 34.6, RDW Std Deviation 46.7 H, RDW Coeff of Yesica 13.5, Plt Count 255, MPV 9.6, Immature Gran % (Auto) 0.600, Neut % (Auto) 69.6, Lymph % (Auto) 21.5, [place] % (Auto) 7.1, Eos % (Auto) 1.0, Baso % (Auto) 0.2, Absolute Neuts (auto) 6.7, Absolute Lymphs (auto) 2.06, Nucleated RBC % 0 02/05/22 17:10: Urine Color Straw, Urine Clarity Clear, Urine pH 6.5, Ur Specific [place] 1.010, Urine Protein Negative, Urine Glucose (UA) Normal, Urine Ketones Negative, Urine Occult Blood Negative, Urine Nitrite Negative, Urine Bilirubin Negative, Urine Urobilinogen Normal, Ur Leukocyte Esterase Negative, Urine RBC 0 SEEN, Urine WBC 0 SEEN, Ur Squamous Epith Cells 0-5 SEEN, Urine Bacteria 0 SEEN, Urine Mucus 0 SEEN 02/06/22 07:34: Urine Opiates Screen NEGATIVE, Urine Methadone Screen NEGATIVE, Ur Barbiturates Screen NEGATIVE, Ur Phencyclidine Scrn NEGATIVE, Ur Amphetamines Screen NEGATIVE, MDMA (Ecstasy) Screen NEGATIVE, U Benzodiazepines Scrn NEGATIVE, Urine Cocaine Screen NEGATIVE, U Cannabinoids Screen NEGATIVE, Ur Drug Screen Comment Radiography Diagnostic Testing: Radiology Impression Obstetrics Ultrasound 02/05/22 18:00 IMPRESSION: Viable intrauterine gestation approximately 27-28 weeks gestational age. Low-lying placenta approximately 1.8 cm proximal to the internal os. Cervical length 4 cm Electronically Signed: Jayson Coleman MD at 20:38 EDT Reading Location ID and State: [facility] / [place] , Service support , ROS Constitutional Constitutional: Reports systems reviewed and no addt'l complaints, except as documented and as per HPI ENT HEENT: Reports systems reviewed and no addt'l complaints, except as documented Cardiovascular Cardiovascular: Reports systems reviewed and no addt'l complaints, except as documented Respiratory/Chest Respiratory/Chest: Reports systems reviewed and no addt'l complaints, except as documented Gastrointestinal Gastrointestinal: Reports as per HPI Genitourinary Genitourinary: Reports as per HPI Musculoskeletal Musculoskeletal: Reports systems reviewed and no addt'l complaints, except as documented Integumentary Integumentary: Reports systems reviewed and no addt'l complaints, except as documented Neurologic Neurologic: Reports systems reviewed and no addt'l complaints, except as documented Physical Exam Const alert, oriented x3 and no apparent distress HEENT Head and Scalp: normocephalic and atraumatic Neck full ROM and no lymphadenopathy Chest inspection of chest normal Resp normal respiratory effort GI GI Narrative: gravid, abdomen nontender, AGA Manual OB Exam: dilated, effaced and station NST FHR Rate Baby A Baseline: 140 Variability:: Moderate Accelerations:: 15 x 15 Decelerations:: None NST Reactive:: Yes FHR Category:: Category I Uterine Activity:: occasional Assessment & Plan (1) Anxiety: COMMENT: zoloft.counseling encouraged. 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 Transfer of care to [facility] 02/06/22 (6) Placenta previa: COMMENT: now low lying at 1.8 cm from internal os at 27 week ultrasound [facility]. (7) History of labor: COMMENT: delivered spontaneously at 36 weeks 2 days -ccf ([facility]) and was a vacuum extraction for possible bradycardia. bb wt was only 5 lbs. -jocy candidate- declined due to cost - CL at 18 weeks. (8) Obesity affecting : COMMENT: Normal 1 hr GTT (9) Supervision of other normal : COMMENT: [id number] PRISCA:05/03/22 boy Kevan Enriquez PC: Kailey. Fiance:Kevan(his 1st) (10) : QUALIFIERS: Weeks of gestation: 25 weeks Qualified Code(s): Z3A.25 - 25 weeks gestation of COMMENT: Declined genetic and carrier screen, anatomy placenta posterior previa Grade 0 repeat @ 28 weeks PLAN: Plan Patient stable after overnight observations. Discussed either continued inpatient observation until second dose of steroids versus returning tomorrow for second dose. Patient requests to go home and come back for the other dose. Will discharge home with tocolytics. Patient to follow-up with maternal- medicine office to discuss heart abnormality and plan for rest of and care. Charges/Coding Multi Select Codes Visit Charges Office Visit/Consults: 98360 OV L3 Est Urinary/Genital Urinary/Genital CPT Codes: 22999-40 non-stress test Interp
== END 2022-02-06 09:36 | disposition home or self-care (01) ==
LOC: LABSPEC 14:19 → WPOUT 15:03 → WP 02-06 08:28
PROVIDERS: Obstetrics & Gynecology; PCP Nurse Practitioner Family; Referring Provider Nurse Practitioner Women's Health; Visit Provider Nurse Practitioner Women's Health
DX: O47.02 False labor before 37 completed weeks of gestation, second trimester (principal); O99.332 Smoking (tobacco) complicating pregnancy, second trimester; O44.02 Complete placenta previa NOS or without hemorrhage, second trimester; O99.342 Other mental disorders complicating pregnancy, second trimester; O99.212 Obesity complicating pregnancy, second trimester; O99.810 Abnormal glucose complicating pregnancy; O99.891 Other specified diseases and conditions complicating pregnancy; Q24.9 Congenital malformation of heart, unspecified; F41.9 Anxiety disorder, unspecified; Z3A.27 27 weeks gestation of pregnancy
CPT/HCPCS: 96365; 96366 ×7; 36415; 59025; 59050; 76815; 80307; 81001; 85025; 87086; 87088; 96372; J7120; J0702

== ENCOUNTER 2022-02-06 20:55 | Outpatient (CLI) | payer BC, SELFPAY ==
[2022-02-06 21:32] VITALS: BMI 33.1
[2022-02-06] MEDS: Betamethasone/Betamethasone 30 MG/5 ML Vial 12 MG IM (21:33)
[2022-02-07 00:11] VITALS: PULSE 84; O2SAT 97
[2022-02-07 00:15] VITALS: BP 112/58; PULSE 81
--- NOTE | 2022-02-10 09:46 | OB.TRI.PN ---
Progress Notes Progress Note: DOS 02/06/22 steroid shot 2 given for prematurity fu with MFM
== END 2022-02-06 21:40 | disposition home or self-care (01) ==
LOC: WPOUT 21:05 → WP 21:06
PROVIDERS: PCP Nurse Practitioner Family; Visit Provider Obstetrics & Gynecology
DX: O26.899 Other specified pregnancy related conditions, unspecified trimester (principal); Z79.899 Other long term (current) drug therapy; Z3A.00 Weeks of gestation of pregnancy not specified; Z23 Encounter for immunization
CPT/HCPCS: 96372; 99218; G0378; J0702

== ENCOUNTER → 2024-03-09 | Outpatient (CLI) | payer BC, SELFPAY ==
--- NOTE | 2024-03-09 08:29 | BI_ITS ---
MAMMOGRAPHY - BILATERAL DIAGNOSTIC REASON FOR EXAM: Female, 28 years old. Right breast pain and focal redness. PERTINENT HISTORY: Non-contributory. TECHNIQUE: Digital bilateral breast leann (3D mammographic acquisition) in the CC and MLO projections. 2-D mediolateral oblique (MLO) and craniocaudad (CC) views of both breasts were obtained. CAD: Full Field Digital Mammography with Computer Added Detection was performed. COMPARISON: None. Baseline examination. FINDINGS: Breast Composition: The breasts are heterogeneously dense, which may obscure small masses. There are no dominant masses or suspicious calcifications. No other significant abnormalities are identified. BI/DIAG MAMM W/CAD, BILAT IMPRESSION: Negative diagnostic mammogram. With the patient''s history of a localized right-sided breast pain, targeted correlation with ultrasound recommended. ASSESSMENT CATEGORY: BIRADS Category 0: Incomplete. Need additional imaging evaluation. A letter regarding these results will be sent to the patient by the facility within 30 days. Approximately 10% of breast cancers are not detected by mammography. A normal mammogram should not delay biopsy of a clinically suspicious abnormality. Electronically Signed: Jeff Spence MD at 9:43 EDT ,
--- NOTE | 2024-03-09 09:01 | US_ITS ---
STUDY: ULTRASOUND BREAST - RIGHT REASON FOR EXAM: Female, 28 years old. Palpable lump in the right breast. TECHNIQUE: Axial and longitudinal images of the RIGHT breast were performed with a high resolution ultrasound transducer. # OF IMAGES: 45 COMPARISON: Comparison is made with prior mammogram done earlier today. FINDINGS: RIGHT Breast: There is a 3 mm x 3 mm x 1 mm hypodensity in the superficial aspect of the breast at the level of the skin. This corresponds to the focal area of redness.. This may represent a small sebaceous cyst. US/Breast Limited Unilateral IMPRESSION: The abnormality most likely corresponds to a small sebaceous cyst. ASSESSMENT CATEGORY: BIRADS Category 2: Benign. A letter regarding these results will be sent to the patient by the facility within 30 days. Electronically Signed: Jeff Spence MD at 10:52 EDT ,
== END | disposition home or self-care (01) ==
PROVIDERS: PCP Nurse Practitioner Family; Referring Provider Advanced Practice Midwife; Visit Provider Advanced Practice Midwife
DX: N64.4 Mastodynia (principal)
CPT/HCPCS: 76642; 77062; 77066; G0279